=== PATIENT | female | born 1970 | race Caucasian/White ===

== ENCOUNTER 2019-04-26 10:35 | Outpatient (CLI) | payer OTHER ==
[2019-04-26] MEDS ORDERED: OXYC-302 PO (10:55)
[2019-04-26] MEDS ORDERED: NAPR-856 PO (11:10)
[2019-04-26] MEDS ORDERED: IBUP-1223 PO (11:10)
[2019-04-26 11:28] LABS: BASOPHILS # (AUTO) 0.05 x10^3/uL (0-0.1); BASOPHILS % (AUTO) 1 % (0-1); EOSINOPHILS % (AUTO) 2 % (1-7); LYMPHOCYTES # (AUTO) 2.41 x10^3/uL (1-3.4); LYMPHOCYTES % (AUTO) 24 % (22-44); MD NO; MEAN CORPUSCULAR HEMOGLOBIN 32.6 pg (27.0-34.8); MEAN CORPUSCULAR HGB CONC 34.1 g/dL (32.4-35.8); MEAN CORPUSCULAR VOLUME 95.6 fL (80-100); MEAN PLATELET VOLUME 7.5 fL (7.4-10.4); MONOCYTES # (AUTO) 0.86 x10^3/uL (0.2-0.8); MONOCYTES % (AUTO) 8 % (2-9); NEUTROPHILS % (AUTO) 66 % (42-75); PLATELET COUNT 349 x10^3/uL (130-400); RED BLOOD COUNT 4.65 x10^6/uL (3.82-5.3); RED CELL DISTRIBUTION WIDTH 12.5 % (9.6-15.2)
[2019-04-26 11:39] LABS: ALBUMIN 4.1 g/dL (3.4-5.0); ANION GAP 9 mmol/L (5-15); CALCIUM 8.6 mg/dL (8.5-10.1); CHLORIDE 106 mmol/L (98-107)
[2019-04-26 11:43] LABS: ALANINE AMINOTRANSFERASE 88 U/L (12-78); ALKALINE PHOSPHATASE 62 U/L (45-117); CREATININE 0.81 mg/dL (0.55-1.02); TOTAL PROTEIN 7.5 g/dL (6.4-8.2)
== END 2019-04-26 23:59 | disposition home or self-care (01) ==
LOC: STAR 10:35
PROVIDERS: ATTEND Specialist
DX: Z01.818 Encounter for other preprocedural examination (principal); N80.9 Endometriosis, unspecified; N73.6 Female pelvic peritoneal adhesions (postinfective)
CPT/HCPCS: 36415; 80053; 85025; 93005

== ENCOUNTER 2019-05-05 10:22 | Observation (INO) | payer OTHER ==
[~2019-05-05] VITALS: Ht 160 cm; Wt 79.9 kg
[~2019-05-05 10:22] MED LIST: CLONIDINE ONE; IBUP-1223 PO; LABETALOL 5MG/ML, 20ML ONE; MAGNESIUM SULFATE 1 GM/2 ML ONE; NAPR-856 PO; OXYC-302 PO
[2019-05-05] MEDS ORDERED: LACTATED RINGERS 1,000 ML IV SCH (10:44)
[2019-05-05 10:57] VITALS: BP 175/82
[2019-05-05] MEDS ORDERED: FAMOTIDINE 20 MG TABLET PO ONE (11:00)
[2019-05-05] MEDS ORDERED: GABAPENTIN 300 MG CAPSULE PO ONE (11:00)
[2019-05-05] MEDS ORDERED: LIDOCAINE-MPF 1%, 2ML INFIL ONE (11:00)
[2019-05-05] MEDS ORDERED: PLEASE ENTER ALLERGIES MC SCH (11:00)
[2019-05-05] MEDS ORDERED: SCOPOLAMINE PATCH, 1.5MG PATCH.TD72 TD ONE (11:00)
[2019-05-05] MEDS ORDERED: LIDOCAINE-MPF 2% ,5ML ONE (11:19)
[2019-05-05] MEDS ORDERED: PROPOFOL 10 MG/ML, 20ML ONE (11:19)
[2019-05-05] MEDS ORDERED: ROCURONIUM 10MG/ML,5ML ONE (11:19)
[2019-05-05] MEDS ORDERED: MIDAZOLAM 1 MG/ML, 2ML ONE (11:19)
[2019-05-05] MEDS ORDERED: GLYCOPYRROLATE 0.2MG/1ML, 5ML ONE (11:19)
[2019-05-05] MEDS ORDERED: ROPIvacaine/PF 0.5%, 30 ML ONE (11:19)
[2019-05-05] MEDS ORDERED: DEXAMETHASONE 4 MG/ML, 1ML ONE (11:19)
[2019-05-05] MEDS ORDERED: FENTANYL PF 250 MCG/5ML ONE (11:20)
[2019-05-05 11:35] LABS: HCG UR SG 1.025 (1.003-1.030)
[2019-05-05] MEDS ORDERED: BUPIVACAINE/PF 0.5% ONE (13:02)
[2019-05-05] MEDS ORDERED: EPINEPHRINE 1 MG/ML, 1ML ONE (13:02)
[2019-05-05] MEDS ORDERED: BUPIVACAINE/PF-EPI 0.25% 1:200K ONE (13:02)
[2019-05-05] MEDS ORDERED: CEFAZOLIN 1,000 MG ONE (13:04)
[2019-05-05] MEDS ORDERED: MIDAZOLAM 1 MG/ML, 2ML IV PRN (13:30)
[2019-05-05] MEDS ORDERED: HYDROcodone/APAP 7.5-325MG/15ML UDC PO PRN (13:30)
[2019-05-05] MEDS ORDERED: DIPHENHYDRAMINE 50 MG/ML, 1ML IVPush PRN (13:30)
[2019-05-05] MEDS ORDERED: ONDANSETRON 2MG/ML, 2ML IV PRN ×2 (13:30→18:00)
[2019-05-05] MEDS ORDERED: METOCLOPRAMIDE 5 MG/ML, 2ML IV PRN (13:30)
[2019-05-05] MEDS ORDERED: EPHEDRINE 50 MG/ML, 1ML IVPush PRN (13:30)
[2019-05-05] MEDS ORDERED: ALBUTEROL/IPRATROPIUM 2.5MG/0.5MG, 3 ML NPPB PRN (13:30)
[2019-05-05] MEDS ORDERED: MEPERIDINE/PF 25MG/ML,1ML IVPush PRN (13:30)
[2019-05-05] MEDS ORDERED: MORPHINE SULFATE 4 MG/ML, 1ML IVPush PRN (13:30)
[2019-05-05] MEDS ORDERED: OXYcodone 5 MG/5 ML ORAL.SOL UDC PO PRN (13:30)
[2019-05-05] MEDS ORDERED: hydrALAzine 20 MG/ML, 1ML IV PRN (13:30)
[2019-05-05] MEDS ORDERED: KETOROLAC 30 MG/1 ML IV PRN (13:30)
[2019-05-05] MEDS ORDERED: LABETALOL 5MG/ML, 20ML IV PRN (13:30)
[2019-05-05] MEDS ORDERED: DEXAMETHASONE 4 MG/ML, 1ML IV PRN (13:30)
[2019-05-05] MEDS ORDERED: HYDROmorphone 2 MG/ML, 1ML IVPush PRN (13:30)
[2019-05-05] MEDS ORDERED: ONDANSETRON 2MG/ML, 2ML ONE (13:41)
[2019-05-05] MEDS ORDERED: BUPIVACAINE/PF-EPI 0.5% 1:200K INFIL ONE (14:02)
[2019-05-05] MEDS ORDERED: KETOROLAC 30 MG/1 ML ONE (15:42)
[2019-05-05] MEDS: FENTANYL PF 100 MCG/2ML IV PRN ×2 (16:16→16:31)
[2019-05-05] MEDS ORDERED: OXYcodone 5 MG/5 ML ORAL.SOL UDC ONE (16:16)
[2019-05-05] MEDS ORDERED: FENTANYL PF 100 MCG/2ML ONE (16:16)
[2019-05-05] MEDS ORDERED: HYDROmorphone 1 MG/ML, 1ML INJ ONE (16:41)
[2019-05-05] MEDS ORDERED: DIPHENHYDRAMINE 50 MG/ML, 1ML ONE (16:43)
[2019-05-05] MEDS ORDERED: ACETAMINOPHEN 325 MG TABLET PO PRN (18:00)
[2019-05-05] MEDS ORDERED: ACETAMINOPHEN 650 MG SUPP PR PRN (18:00)
[2019-05-05] MEDS ORDERED: MEPERIDINE/PF 100 MG/ML IM PRN (18:00)
[2019-05-05] MEDS ORDERED: HYDROmorphone 2 MG/ML, 1ML IV PRN (18:00)
[2019-05-05] MEDS: KETOROLAC 30 MG/1 ML IV SCH (18:21)
[2019-05-05] MEDS: POTASSIUM CHLORIDE 20 MEQ in D5%-LACTATED RINGERS 1,000 ML IV SCH (18:21)
[2019-05-05 20:28] VITALS: BP 125/80
[2019-05-05] MEDS: OXYcodone/APAP 5/325MG TABLET PO PRN (20:37)
[2019-05-05] MEDS ORDERED: CEFAZOLIN PMX 2GM/50ML 50 ML IVPB ONE (21:00)
[2019-05-06] MEDS: KETOROLAC 30 MG/1 ML IV SCH ×3 (00:17→12:48)
[2019-05-06 00:21] VITALS: BP 131/78
[2019-05-06] MEDS: OXYcodone/APAP 5/325MG TABLET PO PRN ×3 (01:53→12:53)
[2019-05-06] MEDS: POTASSIUM CHLORIDE 20 MEQ in D5%-LACTATED RINGERS 1,000 ML IV SCH ×3 (01:53→18:08)
[2019-05-06 06:28] VITALS: BP 116/65
[2019-05-06 12:44] VITALS: BP 107/60
[2019-05-06] MEDS ORDERED: DIPHENHYDRAMINE 25 MG CAPSULE PO ONE (15:30)
[2019-05-06] MEDS ORDERED: DIPHENHYDRAMINE 25 MG CAPSULE PO PRN (18:00)
[2019-05-06] MEDS: HYDROmorphone 2MG TABLET PO PRN ×2 (18:14→22:34)
[2019-05-06 20:43] VITALS: BP 111/66
[2019-05-06] MEDS: IBUPROFEN 600 MG TABLET PO SCH (21:36)
[2019-05-07] MEDS: POTASSIUM CHLORIDE 20 MEQ in D5%-LACTATED RINGERS 1,000 ML IV SCH ×2 (00:17→10:25)
[2019-05-07 01:57] VITALS: BP 116/71
[2019-05-07] MEDS: IBUPROFEN 600 MG TABLET PO SCH (06:14)
[2019-05-07] MEDS ORDERED: IBUPROFEN 600 MG TABLET PO SCH (08:00)
[2019-05-07] MEDS ORDERED: HYDR2TAB29 PO (08:59)
[2019-05-07] MEDS ORDERED: OXYC-302 PO (09:00)
[2019-05-07] MEDS ORDERED: ESTR1TAB15 PO (09:02)
[2019-05-07 09:15] VITALS: BP 116/75
== END 2019-05-07 10:15 | disposition home or self-care (01) ==
LOC: INTOOBSV 10:22 → UNDOADMOB 10:22 → ORIP 10:22 → 4NE 17:20 → DCLOUNGE 05-07 10:08
PROVIDERS: ADMIT Specialist; ATTEND Specialist
DX: K80.20 Calculus of gallbladder without cholecystitis without obstruction (principal); N73.6 Female pelvic peritoneal adhesions (postinfective); G89.29 Other chronic pain; R10.2 Pelvic and perineal pain
CPT/HCPCS: 36415; 47562; 58571; 81025; 85014; 85018; 88304; 88307; 96365; 96375; 96376; G0378; J0171; J0690; J1100; J1170; J1885; J2250; J2405; J2704; J2795; J3010; J3475; J3480; J3490; J7120; J7121; Q0163; S0020; J0735

== ENCOUNTER 2019-11-13 14:01 | Emergency (ER) | payer OTHER ==
[~2019-11-13] VITALS: Ht 160 cm; Wt 78.0 kg
[~2019-11-13 14:01] MED LIST changes: -CLONIDINE ONE; +ESTR1TAB15 PO; +HYDR2TAB29 PO; -LABETALOL 5MG/ML, 20ML ONE; -MAGNESIUM SULFATE 1 GM/2 ML ONE
--- NOTE | 2019-11-13 15:12 | NUR ---
MAINTAINER CENTRAL OFFICE: PT WALKED BACK FROM LOBBY TO ROOM AT THIS TIME. STEADY UPON AMBULATION. NO ACUTE DISTRESS NOTED.
[2019-11-13] MEDS ORDERED: ASPIRIN 81 MG TABLET CHEW PO ONE (15:30)
[2019-11-13] MEDS ORDERED: ASPIRIN 81 MG TABLET CHEW ONE (15:42)
[2019-11-13 15:55] LABS: ALANINE AMINOTRANSFERASE 123 U/L (12-78); ALBUMIN 4.2 g/dL (3.4-5.0); ANION GAP 7 mmol/L (5-15); BASOPHILS # (AUTO) 0.04 x10^3/uL (0-0.1); BASOPHILS % (AUTO) 0 % (0-1); CALCIUM 9.3 mg/dL (8.5-10.1); CHLORIDE 109 mmol/L (98-107); CREATININE 0.66 mg/dL (0.55-1.02); EOSINOPHILS # (AUTO) 0.19 x10^3/uL (0-0.4); EOSINOPHILS % (AUTO) 2 % (1-7); LYMPHOCYTES # (AUTO) 2.62 x10^3/uL (1-3.4); LYMPHOCYTES % (AUTO) 31 % (22-44); MD NO; MEAN CORPUSCULAR HEMOGLOBIN 32.6 pg (27.0-34.8); MEAN CORPUSCULAR HGB CONC 34.6 g/dL (32.4-35.8); MEAN PLATELET VOLUME 7.9 fL (7.4-10.4); MONOCYTES # (AUTO) 0.58 x10^3/uL (0.2-0.8); MONOCYTES % (AUTO) 7 % (2-9); NEUTROPHILS # (AUTO) 5.14 x10^3/uL (1.8-6.8); NEUTROPHILS % (AUTO) 60 % (42-75); PLATELET COUNT 313 x10^3/uL (130-400); RED BLOOD COUNT 4.49 x10^6/uL (3.82-5.3); RED CELL DISTRIBUTION WIDTH 12.5 % (9.6-15.2)
[2019-11-13 15:59] LABS: ALKALINE PHOSPHATASE 80 U/L (45-117); BILIRUBIN,TOTAL 1.2 mg/dL (0.2-1.0); TOTAL PROTEIN 7.6 g/dL (6.4-8.2); TROPONIN I < 0.015 ng/mL (0.000-0.045)
[2019-11-13 16:56] VITALS: BP 121/64
--- NOTE | 2019-11-13 16:56 | NUR ---
Patient given discharge instructions and they have confirmed that they understand the instructions. Patient ambulatory with steady gait. Pt left with d/c paperwork, Rx, and all personal belongings. NADN. No needs expressed.
== END 2019-11-13 16:58 | disposition home or self-care (01) ==
LOC: ED 16:33
DX: R07.2 Precordial pain (principal); F41.9 Anxiety disorder, unspecified; R11.0 Nausea; R94.31 Abnormal electrocardiogram [ECG] [EKG]
CPT/HCPCS: 36415; 71045; 80053; 84484; 85025; 93005; 99285

== ENCOUNTER 2019-11-28 18:08 | Observation (INO) | payer OTHER ==
[~2019-11-28] VITALS: Ht 160 cm; Wt 73.0 kg
--- NOTE | 2019-11-28 18:31 | NUR ---
PT HAS CO OF CHEST PAIN THAT RADIATES TO LEFT ARM AND BACK OF SHOULDER. SOB W CHEST PAIN, DENIES COUGH. Pt reports she was evaluated for similar pain earlier this year. Pt was told was anxiety. Pt appears calm and not in distress. Pt is no diaphoretic or SOB. Pt connected to monitor and call light in reach. VSS.
[2019-11-28] MEDS ORDERED: NITROGLYCERIN SINGLE TAB 0.4 MG SL ONE (18:45)
[2019-11-28] MEDS ORDERED: ASPIRIN 81 MG TABLET CHEW ONE (18:48)
[2019-11-28] MEDS ORDERED: ASPIRIN 81 MG TABLET CHEW PO ONE (19:00)
[2019-11-28] MEDS ORDERED: NITROGLYCERIN SINGLE TAB 0.4 MG SL PRN (19:00)
[2019-11-28 19:01] LABS: BASOPHILS # (AUTO) 0.03 x10^3/uL (0-0.1); BASOPHILS % (AUTO) 0 % (0-1); EOSINOPHILS # (AUTO) 0.29 x10^3/uL (0-0.4); EOSINOPHILS % (AUTO) 3 % (1-7); LYMPHOCYTES # (AUTO) 2.81 x10^3/uL (1-3.4); LYMPHOCYTES % (AUTO) 32 % (22-44); MD NO; MEAN CORPUSCULAR HEMOGLOBIN 32.1 pg (27.0-34.8); MEAN CORPUSCULAR HGB CONC 33.1 g/dL (32.4-35.8); MEAN CORPUSCULAR VOLUME 96.9 fL (80-100); MEAN PLATELET VOLUME 7.8 fL (7.4-10.4); MONOCYTES # (AUTO) 0.78 x10^3/uL (0.2-0.8); MONOCYTES % (AUTO) 9 % (2-9); NEUTROPHILS # (AUTO) 4.85 x10^3/uL (1.8-6.8); NEUTROPHILS % (AUTO) 55 % (42-75); PLATELET COUNT 306 x10^3/uL (130-400); RED BLOOD COUNT 4.78 x10^6/uL (3.82-5.3); RED CELL DISTRIBUTION WIDTH 12.4 % (9.6-15.2)
--- NOTE | 2019-11-28 19:02 | NUR ---
After one nitro pt reports that pressure is better.
[2019-11-28 19:11] LABS: ALANINE AMINOTRANSFERASE 115 U/L (12-78); ALBUMIN 4.2 g/dL (3.4-5.0); ANION GAP 7 mmol/L (5-15); CALCIUM 9.2 mg/dL (8.5-10.1); CHLORIDE 110 mmol/L (98-107); CREATININE 0.67 mg/dL (0.55-1.02)
[2019-11-28 19:15] LABS: ALKALINE PHOSPHATASE 73 U/L (45-117); BILIRUBIN,TOTAL 0.8 mg/dL (0.2-1.0); TROPONIN I < 0.015 ng/mL (0.000-0.045)
[2019-11-28 21:19] VITALS: BP 108/73
[2019-11-28 21:53] VITALS: BP 134/83
[2019-11-28] MEDS ORDERED: ACETAMINOPHEN 325 MG TABLET ONE (22:42)
[2019-11-28] MEDS: ACETAMINOPHEN 325 MG TABLET PO PRN (22:43)
[2019-11-28] MEDS ORDERED: MELATONIN 5 MG TABLET PO PRN (23:00)
[2019-11-28] MEDS ORDERED: DOCUSATE 100 MG CAPSULE PO PRN (23:00)
[2019-11-28] MEDS ORDERED: LIDODERM 5% PATCH TD PRN (23:00)
[2019-11-28] MEDS ORDERED: NITROGLYCERIN 0.4 MG BOTTLE (25 TABS) SL PRN (23:00)
[2019-11-28] MEDS ORDERED: ONDANSETRON 2MG/ML, 2ML IVPush PRN (23:00)
[2019-11-28] MEDS ORDERED: hydrALAzine 20 MG/ML, 1ML IVPush PRN (23:00)
[2019-11-28] MEDS ORDERED: ENOXAPARIN 40 MG/0.4 ML SQ SCH (23:00)
[2019-11-28] MEDS ORDERED: MAALOX/HYOSCYAMINE/LIDOCAINE 45 ML BTL PO ONE (23:00)
[2019-11-29 00:15] LABS: TROPONIN I < 0.015 ng/mL (0.000-0.045)
[2019-11-29 02:47] VITALS: BP 131/78
[2019-11-29] MEDS: ACETAMINOPHEN 325 MG TABLET PO PRN (05:02)
[2019-11-29 05:29] LABS: BASOPHILS # (AUTO) 0.04 x10^3/uL (0-0.1); BASOPHILS % (AUTO) 1 % (0-1); EOSINOPHILS # (AUTO) 0.27 x10^3/uL (0-0.4); EOSINOPHILS % (AUTO) 3 % (1-7); LYMPHOCYTES # (AUTO) 2.56 x10^3/uL (1-3.4); LYMPHOCYTES % (AUTO) 31 % (22-44); MD NO; MEAN CORPUSCULAR HEMOGLOBIN 32.3 pg (27.0-34.8); MEAN CORPUSCULAR HGB CONC 33.7 g/dL (32.4-35.8); MEAN CORPUSCULAR VOLUME 95.8 fL (80-100); MEAN PLATELET VOLUME 8.2 fL (7.4-10.4); MONOCYTES % (AUTO) 9 % (2-9); NEUTROPHILS # (AUTO) 4.61 x10^3/uL (1.8-6.8); NEUTROPHILS % (AUTO) 56 % (42-75); PLATELET COUNT 305 x10^3/uL (130-400); RED BLOOD COUNT 4.42 x10^6/uL (3.82-5.3); RED CELL DISTRIBUTION WIDTH 12.8 % (9.6-15.2)
[2019-11-29 05:39] LABS: ANION GAP 5 mmol/L (5-15); CHLORIDE 109 mmol/L (98-107)
[2019-11-29 05:47] LABS: CHOL/HDL RATIO 2.7; CHOLESTEROL, TOTAL 168 mg/dL (140-239); CREATININE 0.76 mg/dL (0.55-1.02); HDL CHOL % 38 % (28-40); HDL CHOLESTEROL (DIRECT) 63 mg/dL (40-60); LDL CHOLESTEROL,CALCULATED 72 mg/dL (54-169); LDL/HDL RATIO 1.1 (0.5-3.0); TRIGLYCERIDES 163 mg/dL (50-200); TROPONIN I < 0.015 ng/mL (0.000-0.045); VLDL CHOLESTEROL 33 mg/dL (0-25)
[2019-11-29 06:03] VITALS: BP 100/48
[2019-11-29 07:10] VITALS: BP 117/79
[2019-11-29] MEDS ORDERED: PANTOPRAZOLE 40 MG IV IVPush SCH (07:30)
[2019-11-29] MEDS ORDERED: ESTRADIOL 1 MG TABLET PO SCH (09:00)
[2019-11-29] MEDS ORDERED: REGADENOSON 0.4 MG/5 ML SYRINGE ONE (10:57)
[2019-11-29] MEDS ORDERED: LIDODERM REMOVE PATCH NOTE XX PRN (11:00)
[2019-11-29 12:44] VITALS: BP 135/83
== END 2019-11-29 17:50 | disposition home or self-care (01) ==
LOC: ED 18:24 → INTOOBSV 20:09 → 5SO 20:09
PROVIDERS: ADMIT Family Medicine; ATTEND Hospitalist
DX: R07.89 Other chest pain (principal); F41.9 Anxiety disorder, unspecified; I16.0 Hypertensive urgency; K76.0 Fatty (change of) liver, not elsewhere classified; N80.9 Endometriosis, unspecified; Z90.49 Acquired absence of other specified parts of digestive tract; Z88.6 Allergy status to analgesic agent; Z79.899 Other long term (current) drug therapy
CPT/HCPCS: 36415; 71045; 74181; 78452; 80048; 80053; 80061; 83735; 84100; 84443; 84484; 85025; 85379; 93005; 93017; 93306; 96372; 96374; 99285; A9502; C9113; G0378; J1650; J2785

== ENCOUNTER 2020-06-28 11:17 | Emergency (ER) | payer OTHER ==
[~2020-06-28] VITALS: Ht 160 cm; Wt 77.9 kg
[~2020-06-28 11:17] MED LIST changes: -OXYC-302 PO; +OXYC1TAB14 PO
[2020-06-28] MEDS ORDERED: OMNIPAQUE 350 MG/ML, 100ML BOTTLE ONE (11:37)
[2020-06-28] MEDS ORDERED: SODIUM CHLORIDE FLUSH 10ML SYR IVF ONE (12:00)
[2020-06-28 12:59] LABS: MICROSCOPIC NOT IND
[2020-06-28 14:11] VITALS: BP 120/72
== END 2020-06-28 14:14 | disposition home or self-care (01) ==
LOC: ED 13:52
DX: R10.11 Right upper quadrant pain (principal); R10.13 Epigastric pain; R11.0 Nausea; M54.5 Low back pain; Z90.49 Acquired absence of other specified parts of digestive tract; Z90.710 Acquired absence of both cervix and uterus
CPT/HCPCS: 74177; 81003; 99285; Q9967

== ENCOUNTER 2020-08-28 14:25 | Emergency (ER) | payer OTHER ==
[~2020-08-28] VITALS: Ht 160 cm; Wt 79.2 kg
--- NOTE | 2020-08-28 15:11 | NUR ---
THIS IS A 50 YO F W/ C/O DIZZINESS. PT STATES "IT FEELS LIKE IM DRUNK BUT I DON'T DRINK AND MY SAID THAT I WAS SLURRING MY WORDS". PT REPORTS RECENT ELEVATED A1C, INCREASED URINATION AND BREATH W/ FRUITY ODOR. FSBS 88 IN TRIAGE. PT AMBULATED TO THE BR W/ A STEADY GAIT. URINE COLLECTED AND SENT TO LAB. CAR GILBERT. TEENA HERRON STUDENT AT BEDSIDE.
--- NOTE | 2020-08-28 15:14 | NUR ---
LAB AT BEDSIDE.
[2020-08-28 15:25] LABS: BASOPHILS % (AUTO) 1 % (0-1); EOSINOPHILS % (AUTO) 1 % (1-7); LYMPHOCYTES % (AUTO) 36 % (22-44); MEAN CORPUSCULAR HEMOGLOBIN 33.2 pg (27.0-34.8); MEAN CORPUSCULAR HGB CONC 34.6 g/dL (32.4-35.8); MEAN PLATELET VOLUME 7.6 fL (7.4-10.4); MONOCYTES % (AUTO) 8 % (2-9); NEUTROPHILS % (AUTO) 54 % (42-75); PLATELET COUNT 326 x10^3/uL (130-400); RED BLOOD COUNT 4.68 x10^6/uL (3.82-5.3); RED CELL DISTRIBUTION WIDTH 12.6 % (9.6-15.2)
[2020-08-28 15:27] LABS: MD NO
[2020-08-28 15:31] LABS: MICROSCOPIC NOT IND
[2020-08-28 15:34] LABS: ALANINE AMINOTRANSFERASE 199 U/L (12-78); ALBUMIN 4.5 g/dL (3.4-5.0); ANION GAP 6 mmol/L (5-15); CALCIUM 9.7 mg/dL (8.5-10.1); CHLORIDE 106 mmol/L (98-107); CREATININE 0.77 mg/dL (0.55-1.02)
[2020-08-28 15:35] LABS: ALKALINE PHOSPHATASE 109 U/L (45-117); BILIRUBIN,TOTAL 0.7 mg/dL (0.2-1.0); TOTAL PROTEIN 8.5 g/dL (6.4-8.2)
[2020-08-28 16:10] VITALS: BP 123/74
== END 2020-08-28 16:13 | disposition home or self-care (01) ==
LOC: ED 16:08
DX: R42 Dizziness and giddiness (principal); R94.31 Abnormal electrocardiogram [ECG] [EKG]
CPT/HCPCS: 36415; 80053; 81003; 82962; 84443; 85025; 93005; 99284

== ENCOUNTER 2020-12-22 06:01 | Day surgery (SDC) | payer OTHER ==
[~2020-12-22] VITALS: Ht 160 cm; Wt 78.7 kg
[~2020-12-22 06:01] MED LIST changes: +OXYC1TAB12 PO; -OXYC1TAB14 PO
[2020-12-22 07:01] VITALS: BP 124/75
[2020-12-22 07:31] LABS: INTERNATIONAL NORMALIZED RATIO 0.96 (0.93-1.1); PROTHROMBIN TIME 10.3 Seconds (9.6-11.5)
[2020-12-22] MEDS ORDERED: NALOXONE 1 MG/ML, 2ML ONE (07:56)
[2020-12-22] MEDS ORDERED: MIDAZOLAM 1 MG/ML, 5ML ONE (07:56)
[2020-12-22] MEDS ORDERED: FLUMAZENIL 0.1 MG/1 ML, 5ML ONE (07:56)
[2020-12-22] MEDS ORDERED: FENTANYL PF 100 MCG/2ML ONE ×2 (07:56)
[2020-12-22] MEDS ORDERED: OXYcodone IR 5MG TABLET ONE (10:23)
[2020-12-22] MEDS ORDERED: ACETAMINOPHEN 325 MG TABLET ONE (10:24)
[2020-12-22] MEDS ORDERED: OXYcodone/APAP 10/325MG TABLET PO PRN (10:30)
== END 2020-12-22 11:20 | disposition home or self-care (01) ==
LOC: OUT 06:01 → EDSTATUS 08:00 → OUT 11:20
PROVIDERS: ATTEND Internal Medicine
DX: R94.5 Abnormal results of liver function studies (principal); K76.0 Fatty (change of) liver, not elsewhere classified; Z90.710 Acquired absence of both cervix and uterus
CPT/HCPCS: 36415; 47000; 77012; 85610; 88307; 88313; 99156; 99157; J2250; J3010; J2310